=== PATIENT | female | born 1995 | race Hispanic/Latino ===

== ENCOUNTER 2017-12-28 06:30 | Emergency (ER) | payer SELFPAY ==
[2017-12-28] MEDS ORDERED: Ibuprofen 800 MG TAB ONE (07:34)
--- NOTE | 2017-12-28 08:09 | RAD ---
RIGHT FOOT 3 VIEWS: Date: 12/28/17 HISTORY: Injury, right foot pain. FINDINGS/IMPRESSION: No acute fracture or dislocation is identified. POS: BRIANNA
== END 2017-12-28 07:48 | disposition home or self-care (01) ==
LOC: ERS 06:30
DX: S93.601A Unspecified sprain of right foot, initial encounter (principal); W21.02XA Struck by soccer ball, initial encounter; Y93.66 Activity, soccer

== ENCOUNTER 2018-10-02 06:54 | Emergency (ER) | payer OTHER, SELFPAY ==
[2018-10-02] MEDS ORDERED: predniSONE 20 MG TAB ONE (07:18)
== END 2018-10-02 07:30 | disposition home or self-care (01) ==
LOC: ERS 06:54
DX: B34.9 Viral infection, unspecified (principal)
CPT/HCPCS: 99283

== ENCOUNTER 2019-04-08 09:53 | Emergency (ER) | payer OTHER ==
[2019-04-08] MEDS ORDERED: Ondansetron ODT 4 MG TAB ONE (10:00)
[2019-04-08 10:17] LABS: #Basophils 0.1 thou/uL (0.0-0.2); #Eosinphils 0.1 thou/uL (0.0-0.7); #Lymphocytes 2.4 thou/uL (1.20-3.40); #Monocytes 1.1 thou/uL (0.11-0.59); #Neutrophils 15.4 thou/uL (1.40-6.50); %Basophils 0.5 % (0.0-1.0); %Eosinophils 0.7 % (0.0-10.0); %Lymphocytes 12.7 % (21.0-51.0); %Monocytes 5.7 % (0.0-10.0); %Neutrophils 80.5 % (42.0-75.0); Hemoglobin 16.1 g/dL (12.0-16.0); Mean Corpuscular HGB CONC 32.9 g/dL (32.0-36.0); Mean Corpuscular Hemoglobin 29.9 pg (27.0-31.0); Mean Corpuscular Volume 90.7 fL (78.0-98.0); Mean Platelet Volume 7.8 fL (7.4-10.4); Platelet Count 290 thou/uL (130-400); RBC Distribution Width 12.7 % (11.5-14.5); Red Blood Cell (RBC) Count 5.39 mill/uL (4.20-5.40); White Blood Cell (WBC) Count 19.2 thou/uL (4.8-10.8)
[2019-04-08 10:35] LABS: Anion Gap 14 mmol/L (10-20); BUN (Urea Nitrogen) 9 mg/dL (7.0-18.7); Calc. Creatinine Clearance 0 mL/min (70-130); Calcium 9.7 mg/dL (7.8-10.44); Carbon Dioxide 21 mmol/L (22-29); Chloride 107 mmol/L (98-107); Estimated GFR-MDRD Greater than 90; Glucose 103 mg/dL (70-105); Potassium 3.9 mmol/L (3.5-5.1); Sodium 138 mmol/L (136-145)
[2019-04-08 10:37] LABS: Bacteria/HPF None Seen HPF (None Seen); Bilirubin Negative (Negative); Blood, Urine 1+ (Negative); Clarity Clear (Clear); Glucose, Urine (Dipstick) Normal (Negative); Leukocyte Negative Leu/uL (Negative); Nitrite Negative (Negative); Protein, Urine (Dipstick) Negative (Neg-Trace); RBC/HPF 0-3 HPF (0-3); Squamous Epithelial 0-3 HPF (0-3); Urobilinogen Normal mg/dL (Less than 2); WBC/HPF 0-3 HPF (0-3)
[2019-04-08 10:39] LABS: Pregnancy Test - Urine (BHCG) Negative (Negative); Pregu Control Background? CLEAR/WHITE (CLR/WHITE); Pregu Control Bar Appear? YES (CONTROL BAR)
--- NOTE | 2019-04-08 12:48 | CT ---
CT ABDOMEN AND PELVIS WITH IV CONTRAST: HISTORY: 23-year-old female with right lower quadrant abdominal pain accompanied by nausea, vomiting and diarrhea FINDINGS: The patient is status postcholecystectomy. The liver, spleen, pancreas, adrenal glands and kidneys ar e normal. No free air, free fluid or lymphadenopathy seen in the abdomen or pelvis. Uterus and ovaries are visualized. A normal-appearing appendix is seen. The small bowel loops are not abnormally dilated. There is fluid in the loops of small and large bowel. This may likely be due to diarrhea. The bony structures are unremarkable. IMPRESSION: No evidence of appendicitis.
== END 2019-04-08 13:43 | disposition home or self-care (01) ==
LOC: ERS 09:53
DX: R10.13 Epigastric pain (principal); R11.2 Nausea with vomiting, unspecified; R19.7 Diarrhea, unspecified; R10.817 Generalized abdominal tenderness; R10.812 Left upper quadrant abdominal tenderness
CPT/HCPCS: 36415; 74177; 80048; 81003; 81015; 81025; 83690; 85025; 96360; Q0162

== ENCOUNTER 2019-09-28 18:21 | Emergency (ER) | payer OTHER ==
[2019-09-28] MEDS ORDERED: Ondansetron PF 4 MG/2 ML Vial ONE (19:59)
[2019-09-28 20:08] LABS: Bacteria/HPF None Seen HPF (None Seen); Bilirubin Negative (Negative); Blood, Urine 2+ (Negative); Clarity Clear (Clear); Glucose, Urine (Dipstick) Normal (Negative); Leukocyte Negative Leu/uL (Negative); Nitrite Negative (Negative); Protein, Urine (Dipstick) 30 mg/dL (Neg-Trace); Urobilinogen Normal mg/dL (Less than 2); WBC/HPF 0-3 HPF (0-3)
[2019-09-28 20:10] LABS: Pregnancy Test - Urine (BHCG) Negative (Negative); Pregu Control Background? CLEAR/WHITE (CLR/WHITE); Pregu Control Bar Appear? YES (CONTROL BAR); Specific Gravity 1.028 (1.002-1.036)
== END 2019-09-28 21:32 | disposition home or self-care (01) ==
LOC: ERS 18:21
DX: R11.2 Nausea with vomiting, unspecified (principal)
CPT/HCPCS: 81003; 81015; 81025; 96374; J2405

== ENCOUNTER 2019-10-30 09:57 | Emergency (ER) | payer OTHER ==
[2019-10-30] MEDS ORDERED: Adacel (T-DAP) 0.5 ML SYRINGE ONE (10:09)
[2019-10-30] MEDS ORDERED: Lidocaine 1% PF 5 ML VIAL ONE (10:13)
== END 2019-10-30 11:15 | disposition home or self-care (01) ==
LOC: ERS 09:57
DX: S61.012A Laceration without foreign body of left thumb without damage to nail, initial encounter (principal); W26.8XXA Contact with other sharp object(s), not elsewhere classified, initial encounter
CPT/HCPCS: 12001; 90471; 90715; J2001

== ENCOUNTER 2019-12-29 11:35 | Emergency (ER) | payer OTHER ==
[2019-12-29 12:28] LABS: #Basophils 0.1 thou/uL (0.0-0.2); #Eosinphils 0.1 thou/uL (0.0-0.7); #Lymphocytes 2.8 thou/uL (1.20-3.40); #Monocytes 0.5 thou/uL (0.11-0.59); #Neutrophils 11.4 thou/uL (1.40-6.50); %Basophils 0.7 % (0.0-1.0); %Eosinophils 0.4 % (0.0-10.0); %Lymphocytes 18.6 % (21.0-51.0); %Monocytes 3.6 % (0.0-10.0); %Neutrophils 76.7 % (42.0-75.0); Hemoglobin 15.2 g/dL (12.0-16.0); Mean Corpuscular HGB CONC 34.1 g/dL (32.0-36.0); Mean Corpuscular Hemoglobin 31.2 pg (27.0-31.0); Mean Corpuscular Volume 91.5 fL (78.0-98.0); Mean Platelet Volume 7.6 fL (7.4-10.4); Platelet Count 266 thou/uL (130-400); RBC Distribution Width 12.6 % (11.5-14.5); Red Blood Cell (RBC) Count 4.88 mill/uL (4.20-5.40); White Blood Cell (WBC) Count 14.8 thou/uL (4.8-10.8)
[2019-12-29 12:36] LABS: BHCG - Serum POSITIVE (NEGATIVE); Pregs Control Background? CLEAR/WHITE (CLR/WHITE); Pregs Control Bar Appear? YES (CONTROL BAR)
[2019-12-29 12:59] LABS: ALT (SGPT) 11 U/L (8-55); AST (SGOT) 13 U/L (5-34); Albumin 4.6 g/dL (3.5-5.0); Alkaline Phosphatase 75 U/L (40-110); Anion Gap 12 mmol/L (10-20); BUN (Urea Nitrogen) 8 mg/dL (7.0-18.7); Bilirubin, Total 0.3 mg/dL (0.2-1.2); Calc. Creatinine Clearance 0 mL/min (70-130); Calcium 9.3 mg/dL (7.8-10.44); Carbon Dioxide 22 mmol/L (22-29); Chloride 107 mmol/L (98-107); Estimated GFR-MDRD Greater than 90; Globulin 2.8 g/dL (2.4-3.5); Glucose 102 mg/dL (70-105); Potassium 3.9 mmol/L (3.5-5.1); Protein, Total 7.4 g/dL (6.0-8.3); Sodium 137 mmol/L (136-145)
[2019-12-29 13:53] LABS: Bacteria/HPF None Seen HPF (None Seen); Bilirubin Negative (Negative); Blood, Urine Trace (Negative); Clarity Clear (Clear); Glucose, Urine (Dipstick) Normal (Negative); Leukocyte Negative Leu/uL (Negative); Nitrite Negative (Negative); Protein, Urine (Dipstick) Negative (Neg-Trace); Squamous Epithelial 0-3 HPF (0-3); Urobilinogen Normal mg/dL (Less than 2); WBC/HPF 0-3 HPF (0-3)
--- NOTE | 2019-12-29 15:09 | ULT ---
ULTRASOUND PELVIC ULTRASOUND TRANSVAGINAL DOPPLER DUPLEX: DATE: 12/29/2019 HISTORY: 24-year-old female with positive test presents with pelvic pain TECHNIQUE: Transabdominal transducer and endovaginal transducer used to visualize intrapelvic contents with vásquez scale, color-flow, and spectral analysis. FINDINGS: Uterus: 8 x 4 x 5.5 cm. AP dimension of endometrial stripe is 2.5 cm (25 mm) on transabdominal images. However, the endometrial stripe is only 1.4 cm (14 mm) on transvaginal images. No intrauterine gestational sac visualized. Small amount of free fluid in the cul-de-sac. Right ovary: 4.2 x 2.1 x 3.9 cm. Left ovary: 2.5 x 1.5 x 2.1 cm. Blood flow demonstrated in both ovaries by Doppler. 2.4 x 1.7 x 1.6 cm heterogeneously intermediate echogenicity "mass" measured by gravity prospecting observer helper, with no central blood flow by Doppler, within the right ovarian parenchyma. Uncertain whether this represents a small hemorrhagic ovarian cyst or normal ovarian tissue. There is a well-circumscribed, round 2 x 1.5 cm cyst slightly cephalad to the right ovary. It is diff icult to connect to the right ovarian parenchyma, and therefore it is uncertain whether this is a pedunculated cyst arising from the right ovary. IMPRESSION: 1) a small 2 x 1.5 cm right adnexal simple cyst. 2) questionable 2.4 x 1.7 x 1.6 cm lesion in right ovary. 3) no intrauterine gestational sac visualized. 4) thickened endometrial stripe. 5) consider follow-up pelvic and transvaginal ultrasound in 6 weeks.
== END 2019-12-29 17:20 | disposition home or self-care (01) ==
LOC: ERS 11:35
DX: O99.89 Other specified diseases and conditions complicating pregnancy, childbirth and the puerperium (principal); R10.9 Unspecified abdominal pain; Z3A.01 Less than 8 weeks gestation of pregnancy
CPT/HCPCS: 36415; 76856; 80053; 81003; 81015; 83605; 84702; 84703; 85025

== ENCOUNTER 2020-04-01 10:09 | Emergency (ER) | payer OTHER ==
[2020-04-01 10:41] LABS: #Basophils 0.1 thou/uL (0.0-0.2); #Eosinphils 0.1 thou/uL (0.0-0.7); #Lymphocytes 2.1 thou/uL (1.20-3.40); #Monocytes 0.4 thou/uL (0.11-0.59); #Neutrophils 6.9 thou/uL (1.40-6.50); %Eosinophils 1.1 % (0.0-10.0); %Lymphocytes 21.8 % (21.0-51.0); %Monocytes 4.6 % (0.0-10.0); %Neutrophils 71.6 % (42.0-75.0); Hemoglobin 13.9 g/dL (12.0-16.0); Mean Corpuscular HGB CONC 34.5 g/dL (32.0-36.0); Mean Corpuscular Hemoglobin 30.7 pg (27.0-31.0); Mean Corpuscular Volume 89.1 fL (78.0-98.0); Mean Platelet Volume 7.8 fL (7.4-10.4); Platelet Count 259 thou/uL (130-400); RBC Distribution Width 12.1 % (11.5-14.5); Red Blood Cell (RBC) Count 4.52 mill/uL (4.20-5.40); White Blood Cell (WBC) Count 9.7 thou/uL (4.8-10.8)
[2020-04-01 11:01] LABS: ALT (SGPT) 54 U/L (8-55); AST (SGOT) 31 U/L (5-34); Albumin 3.6 g/dL (3.5-5.0); Alkaline Phosphatase 48 U/L (40-110); Anion Gap 12 mmol/L (10-20); BUN (Urea Nitrogen) 4 mg/dL (7.0-18.7); Bilirubin, Total 0.4 mg/dL (0.2-1.2); Calc. Creatinine Clearance 0 mL/min (70-130); Calcium 8.5 mg/dL (7.8-10.44); Carbon Dioxide 21 mmol/L (22-29); Chloride 106 mmol/L (98-107); Estimated GFR-MDRD Greater than 90; Globulin 2.7 g/dL (2.4-3.5); Glucose 122 mg/dL (70-105); Potassium 3.5 mmol/L (3.5-5.1); Protein, Total 6.3 g/dL (6.0-8.3); Sodium 135 mmol/L (136-145)
[2020-04-01 11:12] LABS: Bilirubin Negative (Negative); Blood, Urine Negative (Negative); Clarity Clear (Clear); Glucose, Urine (Dipstick) Normal (Negative); Ketone, Urine Negative (Negative); Leukocyte Negative Leu/uL (Negative); Nitrite Negative (Negative); Protein, Urine (Dipstick) Negative (Neg-Trace); Specific Gravity, Urine 1.021 (1.002-1.036); Urobilinogen Normal mg/dL (Less than 2); pH, Urine 5.5 (5.0-9.0)
== END 2020-04-01 13:42 | disposition home or self-care (01) ==
LOC: ERS 10:09
DX: R10.10 Upper abdominal pain, unspecified (principal); R10.816 Epigastric abdominal tenderness
CPT/HCPCS: 36415; 80053; 81003; 83690; 85025; J2997

== ENCOUNTER 2020-07-17 12:34 | Emergency (ER) | payer OTHER ==
[2020-07-17 23:58] LABS: SARS-CoV-2 MS2 Positive; SARS-CoV-2 N Gene Positive; SARS-CoV-2 S Gene Positive; SARS-CoV-2 by NAA DETECTED (NotDetected); SARS-CoV-2 orf1ab Positive
== END 2020-07-17 12:55 | disposition home or self-care (01) ==
LOC: ERS 12:34
DX: U07.1 COVID-19 (principal)
CPT/HCPCS: 87635; 99283; U0003